=== PATIENT | female | born 1990 | race Two or more races ===

== ENCOUNTER 2024-07-26 18:23 | Emergency (ER) | payer OTHER ==
[~2024-07-26] VITALS: Ht 157.5 cm; Wt 61.7 kg
[2024-07-26 19:09] LABS: Basophils # (auto) 0 10 ^3/uL (0-0.2); Basophils % (auto) 0.2 % (0.0-2.0); Eosinophils # (auto) 0.1 10 ^3/uL (0-0.8); Eosinophils % (auto) 1.1 % (0.0-7.0); Hematocrit 43.9 % (36.0-46.0); Hemoglobin 15.2 g/dL (12.2-16.2); Mean Corpuscular Hgb Conc. 34.7 g/dL (32.0-36.0); Monocytes # (auto) 0.4 10 ^3/uL (0-1.3); Monocytes % (auto) 5.9 % (0.0-12.0); Neutrophils # (auto) 4.1 10 ^3/uL (1.6-8.6); Neutrophils % (auto) 61.8 % (37.0-80.0); Platelet Count (auto) 211 10^3/uL (140-450); Red Blood Cells 4.62 10^6/uL (4.0-5.20); Red Cell Distribution Width 12.7 % (11.8-14.3); White Blood Cell 6.6 10^3/uL (4.4-10.8)
[2024-07-26 19:28] LABS: Alanine Aminotransferase 13 U/L (7-40); Albumin 4.5 g/dL (3.2-4.8); Alkaline Phosphatase 85 U/L (46-116); Aspartate Aminotransferase 12 U/L (13-40); BUN/Creatinine Ratio 16.3 (10.0-20.0); Bilirubin, Total 0.4 mg/dL (0.2-1.0); Blood Urea Nitrogen 13 mg/dL (9-23); Glucose 92 mg/dL (74-106); Total Protein 7.3 g/dL (5.7-8.2)
[2024-07-26 19:38] LABS: Chloride 105 mmol/L (98-107); Potassium 3.9 mmol/L (3.5-5.1); Sodium 140 mmol/L (136-145)
[2024-07-26 19:41] LABS: Anion Gap 8 (5-15); Calcium 10.1 mg/dL (8.7-10.4); Carbon Dioxide 27 mmol/L (20-30)
[2024-07-26] MEDS ORDERED: ASPI325T6 PO (21:47)
[2024-07-26 21:55] VITALS: BP 115/71; PULSE 60; RESP 18; O2SAT 98
== END 2024-07-26 21:59 | disposition home or self-care (01) ==
LOC: ER 18:23
DX: R07.89 Other chest pain (principal); F41.9 Anxiety disorder, unspecified
CPT/HCPCS: 36415; 80053; 84484; 85025; 93005